=== PATIENT | male | born 2000 | race Two or more races ===

== ENCOUNTER 2022-06-24 15:54 | Emergency (ER) | payer MEDICAID ==
[~2022-06-24] VITALS: Ht 172.7 cm; Wt 68.2 kg
[2022-06-24] MEDS ORDERED: IBUPROFEN 600 MG TABLET PO ONE (16:15)
[2022-06-24] MEDS ORDERED: ACETAMINOPHEN 500 MG TABLET PO ONE (16:15)
[2022-06-24] MEDS ORDERED: BACITRACIN 0.9 GM PACKET OINTMENT TP ONE (16:15)
[2022-06-24 17:32] VITALS: BP 127/81
== END 2022-06-24 17:40 | disposition home or self-care (01) ==
LOC: EMS 15:57
DX: S62.306A Unspecified fracture of fifth metacarpal bone, right hand, initial encounter for closed fracture (principal); F12.90 Cannabis use, unspecified, uncomplicated; X58.XXXA Exposure to other specified factors, initial encounter; Y93.89 Activity, other specified; Y92.89 Other specified places as the place of occurrence of the external cause; Y99.8 Other external cause status
CPT/HCPCS: 99284; 73110-TC; 73130-TC; Z7502; Z7610